=== PATIENT | female | born 1965 ===

== ENCOUNTER 2021-07-14 19:02 | Emergency (ER) | payer BC | END 2021-07-14 19:45 | disposition home or self-care (01) | LOC: LB.ED 19:02 | DX: S43.014A Anterior dislocation of right humerus, initial encounter (principal); E78.00 Pure hypercholesterolemia, unspecified; I10 Essential (primary) hypertension; Z79.82 Long term (current) use of aspirin; Z79.899 Other long term (current) drug therapy | CPT/HCPCS: 23650; 73030-RT; 99281; 99283-25 ==